=== PATIENT | female | born 2000 | race Caucasian/White ===

== ENCOUNTER 2021-12-14 09:22 | Emergency (ER) | payer OTHER ==
[2021-12-14 10:30] LABS: BASOPHIL 0.4 % (0-2); EOSINOPHIL 0.2 % (0-5); HCT 43.4 % (37.0-47.0); HGB 14.3 g/dl (12.5-16.0); LYMPHOCYTE 5.8 % (15-48); MCH 31.6 pg (25.0-31.0); MCHC 32.9 g/dL (32.0-36.0); MCV 95.8 fL (78.0-100.0); MONOCYTE 4.7 % (0-12); NEUTROPHIL 88.2 % (41-80); NRBC 0; PLT 215 K/uL (150-400); RBC 4.53 M/uL (4.20-5.40); RDW 12.2 % (11.5-14.0)
[2021-12-14 10:32] LABS: BILIRUBIN 1+ mg/dL (NEGATIVE); BLOOD 3+ Ery/uL (NEGATIVE); COLOR YELLOW (YELLOW); GLUCOSE (U) NORMAL (NORMAL); LEUKOCYTES NEGATIVE Leu/uL (NEGATIVE); NITRITE NEGATIVE (NEGATIVE); PROTEIN 1+ mg/dL (NEGATIVE); SPECIFIC GRAVITY >=1.030 (1.001-1.030); UROBILINOGEN 0.2 mg/dL (0.2-1.0)
[2021-12-14 10:36] LABS: CLARITY SLIGHTLY HAZY (CLEAR)
[2021-12-14 10:39] LABS: BACTERIA 2+; SQUAMOUS EPITHELIAL CELLS 20-50
[2021-12-14 10:42] LABS: WBC 25.1 K/uL (4.0-10.5)
[2021-12-14 10:45] LABS: ALBUMIN 4.9 g/dL (3.4-5.0); BILIRUBIN - TOTAL 0.6 mg/dL (0.2-1.0); BUN/CREAT RATIO (CALC) 22.8 RATIO; CREATININE 0.79 mg/dL (0.51-0.95); GLOBULIN (CALCULATION) 3.4 g/dL; POTASSIUM 3.6 mmol/L (3.5-5.1); TOTAL PROTEIN 8.3 g/dL (6.4-8.2)
[2021-12-14 11:40] LABS: HCG (URINE) SCREEN NEGATIVE (NEGATIVE)
[2021-12-14 11:49] LABS: LACTIC ACID 1.3 mmol/L (0.4-1.9)
[2021-12-14] MEDS ORDERED: ONDANSETRON ODT4 MG PO (12:12)
[2021-12-14] MEDS ORDERED: BACTRIM DS TAB1 EACH PO (12:12)
[2021-12-14] MEDS ORDERED: NORCO 5-325 TA1 EACH PO (12:12)
== END 2021-12-14 13:32 | disposition home or self-care (01) ==
LOC: FER 09:22
PROVIDERS: Emergency Medicine
DX: N13.0 Hydronephrosis with ureteropelvic junction obstruction (principal); D72.829 Elevated white blood cell count, unspecified
CPT/HCPCS: 36415; 80053; 81001; 83605; 84145; 84703; 85025; J1885; J2270; J2405; J2543; J7030; Q9967